=== PATIENT | female | born 1990 | race Caucasian/White ===

== ENCOUNTER 2017-01-12 16:35 | Emergency (ER) | payer OTHER ==
[~2017-01-12] VITALS: Ht 162.6 cm; Wt 129.3 kg
--- NOTE | 2017-01-12 17:00 | NUR ---
PATIENT BIB SELF, C/O LLQ ABDOMINAL PAIN, RADIATING TO LEFT LOWER BACK. PATIENT A/OX 4, BREATHING EVEN AND UNLABORED ON ROOM AIR. NO SOB. SAFETY AND COMFORT MEASURES IN PLACE, AWAITING MD ORDERS.
[2017-01-12 17:08] LABS: APPEARANCE,URINE Clear (CLEAR); BILIRUBIN,URINE Negative (NEGATIVE); BLOOD, URINE Trace-lysed Ery/uL (NEGATIVE); COLOR,URINE Yellow (YELLOW); KETONES,URINE Trace (NEGATIVE); LEUKOCYTE ESTERASE ,URINE Negative (NEGATIVE); NITRITE, URINE Negative (NEGATIVE); PROTEIN,URINE Trace mg/dl (NEGATIVE); UGLUCOSE Negative (NEGATIVE); UROBILINOGEN,URINE 0.2 EU/dL (0.2)
[2017-01-12 17:11] LABS: PREGNANCY TEST URINE QUAL NEGATIVE (NEGATIVE)
[2017-01-12 17:20] LABS: RBC,URINE 0-2 /HPF (0-2); WBC,URINE 0-2 /HPF (0-3)
[2017-01-12 17:21] LABS: BACTERIA,URINE Rare /HPF (None Seen); MUCUS,URINE Few /LPF (None Seen); SQUAMOUS EPITHELIAL CELL,UR Moderate /HPF (None Seen)
[2017-01-12] MEDS ORDERED: MORPHINE SULFATE INJ 4 MG/ML DISP.SYRIN ONE (17:36)
[2017-01-12] MEDS ORDERED: ONDANSETRON HCL/PF 4 MG/2 ML VIAL ONE (17:36)
[2017-01-12 17:53] LABS: BASOPHILS # (AUTO) 0.1 /CMM (0.0-0.2); BASOPHILS % (AUTO) 0.8 % (0.0-2.0); EOSINOPHILS # (AUTO) 0.1 /CMM (0.0-0.7); HEMATOCRIT 41 % (33-45); HEMOGLOBIN 13.1 g/dL (11.5-14.8); LYMPHOCYTES # (AUTO) 4.3 /CMM (0.8-4.8); LYMPHOCYTES % (AUTO) 29.1 % (20.0-44.0); MEAN CORPUSCULAR HEMOGLOBIN 25 PG (26.0-33.0); MEAN CORPUSCULAR HGB CONC 32 g/dl (31.0-36.0); MEAN CORPUSCULAR VOLUME 78 fL (82-100); MONOCYTES # (AUTO) 0.9 /CMM (0.1-1.30); MONOCYTES % (AUTO) 6.4 % (2.0-12.0); NEUTROPHILS # (AUTO) 9.4 /CMM (1.8-8.9); NEUTROPHILS % (AUTO) 62.7 % (43.0-81.0); PLATELET COUNT (AUTO) 313 /CMM (150-450); RDW COEFFICIENT OF VARIATION 14.8 (11.5-15.0); RED BLOOD CELL COUNT(AUTO) 5.27 MIL/uL (4.0-5.2); WHITE BLOOD COUNT (AUTO) 14.8 K/uL (4.3-11.0)
--- NOTE | 2017-01-12 17:57 | NUR ---
NEW IV STARTED ON LEFT AC, 20 GAUGE. MEDICATED PATIENT WITH MORPHINE AND ZOFRAN PER MD ORDERS.
[2017-01-12] MEDS ORDERED: MORPHINE SULFATE INJ 2 MG/ML DISP.SYRIN IV ONE (18:00)
[2017-01-12] MEDS ORDERED: ONDANSETRON HCL/PF 4 MG/2 ML VIAL IVP ONE (18:00)
[2017-01-12 18:02] LABS: CREATININE 0.8 mg/dL (0.6-1.3); POTASSIUM 4.1 mmol/L (3.5-5.1)
[2017-01-12 18:08] LABS: BILIRUBIN,DIRECT 0.1 mg/dL (0.0-0.2); BILIRUBIN,TOTAL 0.3 mg/dL (0.2-1.0); TOTAL PROTEIN, SERUM 8.6 g/dL (6.4-8.2)
[2017-01-12] MEDS ORDERED: IV NS 0.9% 1,000 ML ONE (18:09)
[2017-01-12] MEDS ORDERED: IV SET PRIMARY 1 EA INFUS.SET MC ONE (18:09)
[2017-01-12 18:14] LABS: CALCIUM, SERUM 9.1 mg/dL (8.5-10.1)
--- NOTE | 2017-01-12 18:18 | NUR ---
1L NS BOLUS STARTED LAC, [address] G[address] SCAN VIA STRETCHER IN STABL CONDITION.
[2017-01-12] MEDS ORDERED: HYDROMORPHONE 1 MG/1 ML DISP.SYRIN ONE (18:28)
--- NOTE | 2017-01-12 18:28 | NUR ---
Patient returned from ct. Remains stable.
--- NOTE | 2017-01-12 18:29 | NUR ---
PATIENT STILL C/O 9/10 ABDOMINAL PAIN. ROBERTA HU MADE AWARE. WILL PROVIDE FURTHER ORDERS.
[2017-01-12] MEDS ORDERED: HYDROMORPHONE 1 MG/1 ML DISP.SYRIN IV ONE (18:30)
[2017-01-12] MEDS ORDERED: IV NS 0.9% 1,000 ML BAG IV ONE (18:30)
--- NOTE | 2017-01-12 18:35 | NUR ---
ROBERTA HU PROVIDED NEW ORDER FOR DILAUDID 1MG. HOWEVER, PATIENT IS REFUSING THE MEDICATION AT THIS TIME. STATING SHE FEELS SICK FROM THE PREVIOUS DOSE OF MORPHINE. DILAUDID NOT ADMINISTERED, WILL REASSESS PATIENT.
--- NOTE | 2017-01-12 19:29 | NUR ---
US TECH AT BEDSIDE
--- NOTE | 2017-01-12 19:31 | NUR ---
Assumed care of pt. pt lying in bed w/ resp even & unlabored, nad noted. US tech continues to be at bedside.
--- NOTE | 2017-01-12 19:47 | NUR ---
pt ambulatory w/ steady gait to restroom.
[2017-01-12] MEDS ORDERED: MORPHINE SULFATE INJ 4 MG/ML DISP.SYRIN IV ONE (20:30)
[2017-01-12] MEDS ORDERED: MORPHINE SULFATE INJ 2 MG/ML DISP.SYRIN ONE (20:32)
--- NOTE | 2017-01-12 20:45 | NUR ---
pt refusing morphine, states it makes her feel nauseous, requesting for po pain medication. FRITZ Fenton notified.
[2017-01-12] MEDS ORDERED: oxyCODONE/APAP (5/325 MG) 1 UDTAB TABLET ONE (20:54)
[2017-01-12] MEDS ORDERED: oxyCODONE/APAP (5/325 MG) 1 UDTAB TABLET PO ONE (21:00)
--- NOTE | 2017-01-12 21:08 | NUR ---
FRITZ Fenton at bedside for update on pt status w/ discharge instructions.
[2017-01-12 21:14] VITALS: BP 171/78
--- NOTE | 2017-01-12 21:14 | NUR ---
IV removed. Catheter intact and site benign. Pressure and 4x4 applied to site. No bleeding noted.Patient discharged to home in stable condition. Written and verbal after care instructions given. Patient verbalizes understanding of instruction.
== END 2017-01-12 21:15 | disposition home or self-care (01) ==
LOC: ER 16:36
DX: R19.04 Left lower quadrant abdominal swelling, mass and lump (principal); E66.01 Morbid (severe) obesity due to excess calories; D72.829 Elevated white blood cell count, unspecified
CPT/HCPCS: 36415; 76856-TC; 80048-TC; 80076-TC; 81000-TC; 83690-TC; 84703-TC; 85025-TC; A4606; J1170; J2270; J2405; J7030; Z7610

== ENCOUNTER 2020-03-25 19:02 | Emergency (ER) | payer OTHER ==
[~2020-03-25] VITALS: Ht 160 cm; Wt 129.7 kg
--- NOTE | 2020-03-25 19:10 | NUR ---
PT CAME TO THE ER C/O R ARM PAIN AND NUMBNESS X 4 DAYS. PT DENIES ANY TRAUMA. PT AAOX4, REPSIRATIONS EVEN AND UNLABORED ON RA W/ NAD NOTED. PT CONNECTED TO THE MONITOR AND POX
[2020-03-25] MEDS ORDERED: DEXAMETHASONE SOD PHOSPHATE 10 MG/ML VIAL ONE (19:43)
[2020-03-25] MEDS ORDERED: KETOROLAC TROMETHAMINE INJ 30 MG/ML VIAL ONE (19:43)
--- NOTE | 2020-03-25 19:45 | NUR ---
FRITZ MEEKS MADE AWARE OF PT'S ELEVATED BP 159/102. PA AT BEDSIDE
[2020-03-25] MEDS ORDERED: KETOROLAC TROMETHAMINE INJ 60 MG/2 ML VIAL IM ONE (20:00)
[2020-03-25] MEDS ORDERED: DEXAMETHASONE SOD PHOSPHATE 4 MG/ML VIAL IM ONE (20:00)
--- NOTE | 2020-03-25 20:05 | NUR ---
NOTED BP 124/88
[2020-03-25 20:14] VITALS: BP 124/88
--- NOTE | 2020-03-25 20:14 | NUR ---
Patient discharged to home in stable condition. Written and verbal after care instructions given. Patient verbalizes understanding of instruction.
== END 2020-03-25 20:14 | disposition home or self-care (01) ==
LOC: ER 19:07
DX: M54.12 Radiculopathy, cervical region (principal); I16.0 Hypertensive urgency; E66.01 Morbid (severe) obesity due to excess calories; Z68.43 Body mass index [BMI] 50.0-59.9, adult; Z98.890 Other specified postprocedural states
CPT/HCPCS: 93005; 96372 ×2; 99284; J1100; J1885

== ENCOUNTER 2021-10-06 08:54 | Emergency (ER) | payer MEDICAID, OTHER ==
[~2021-10-06] VITALS: Ht 160 cm; Wt 115.7 kg
[2021-10-06 09:06] VITALS: BP 148/74
--- NOTE | 2021-10-06 09:06 | NUR ---
BIBS C/O DYSURIA/HEMATURIA, URGENCY SINCE YESTERDAY.
[2021-10-06 09:39] LABS: BILIRUBIN,URINE NEGATIVE (NEGATIVE); COLOR,URINE YELLOW (YELLOW); LEUKOCYTE ESTERASE ,URINE TRACE (NEGATIVE); NITRITE, URINE NEGATIVE (NEGATIVE); PROTEIN,URINE 30 mg/dl (NEGATIVE); UGLUCOSE NEGATIVE (NEGATIVE); UROBILINOGEN,URINE 0.2 EU/dL (0.2)
[2021-10-06 10:03] LABS: RBC,URINE 51-80 /HPF (0-2)
[2021-10-06 10:04] LABS: BACTERIA,URINE None seen /HPF (None Seen); SQUAMOUS EPITHELIAL CELL,UR Moderate /HPF (None Seen)
[2021-10-06] MEDS ORDERED: NITR100C6 PO (10:09)
[2021-10-06] MEDS ORDERED: IBUP-1955 PO (10:09)
--- NOTE | 2021-10-06 10:15 | NUR ---
Patient discharged to home in stable condition. Written and verbal after care instructions given. Patient verbalizes understanding of instruction.
== END 2021-10-06 10:16 | disposition home or self-care (01) ==
LOC: ER 08:54
DX: N39.0 Urinary tract infection, site not specified (principal); Z98.890 Other specified postprocedural states
CPT/HCPCS: 81001; 87086-TC; 87186-TC

== ENCOUNTER 2024-07-29 15:50 | Emergency (ER) | payer MEDICAID, OTHER ==
[~2024-07-29] VITALS: Ht 165.1 cm; Wt 68.0 kg
[~2024-07-29 15:50] MED LIST: IBUP-1955 PO; NITR100C6 PO
[2024-07-29 16:16] VITALS: BP 132/74; TEMP 99.7; O2SAT 99
[2024-07-29] MEDS ORDERED: ACET-2605 PO (17:37)
[2024-07-29] MEDS ORDERED: IBUP-1490 PO (17:37)
[2024-07-29] MEDS ORDERED: GUAI-946 PO (17:37)
[2024-07-29] MEDS ORDERED: ACETAMINOPHEN ES 500 MG TABLET ONE (18:03)
[2024-07-29] MEDS ORDERED: NAPROXEN 250 MG TABLET ONE (18:04)
[2024-07-29] MEDS: ACETAMINOPHEN ES 500 MG TABLET PO ONE (18:10)
[2024-07-29] MEDS: NAPROXEN 250 MG TABLET PO ONE (18:11)
== END 2024-07-29 18:12 | disposition home or self-care (01) ==
LOC: ER 15:50
DX: J11.1 Influenza due to unidentified influenza virus with other respiratory manifestations (principal)